=== PATIENT | female | born 1945 | race Caucasian/White ===

== ENCOUNTER 2021-03-27 11:35 | Inpatient (IN) | payer SELFPAY ==
[2021-03-27] MEDS ORDERED: LISINOPRIL (10MG) 10 MG TABLET PO SCH (13:06)
[2021-03-28] MEDS ORDERED: LISINOPRIL (10MG) 10 MG TABLET PO SCH (09:00)
== END 2021-03-27 14:00 | disposition home or self-care (01) | DRG 951 ==
LOC: SAOV 11:35 → UNDODISIN 12:04
PROVIDERS: ADMIT Internal Medicine Cardiovascular Disease; ATTEND Internal Medicine Cardiovascular Disease
DX: Z00.00 Encounter for general adult medical examination without abnormal findings (principal)